=== PATIENT | female | born 1990 | race Caucasian/White ===

== ENCOUNTER 2019-02-03 17:38 | Emergency (ER) | payer OTHER ==
[~2019-02-03] VITALS: Ht 167.6 cm; Wt 90.7 kg
[2019-02-03 17:38] VITALS: BP 122/80
--- NOTE | 2019-02-03 17:38 | NUR ---
Patient BIBA BLS, transferred to bed 8. RN evaluating patient at bedside.
[2019-02-03] MEDS ORDERED: HALOPERIDOL IM 5 MG/ML VIAL IM ONE (17:50)
[2019-02-03] MEDS ORDERED: LORazepam 2 MG/ML VIAL IM ONE (17:50)
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
[2019-02-03] MEDS ORDERED: NACL 0.9% 1,000 ML IV ONE ×2 (18:40→19:40)
[2019-02-03 18:45] LABS: BASOPHILS # (AUTO) 0.1 K/uL (0.00-0.22); BASOPHILS % (AUTO) 0.5 % (0.0-2.0); EOSINOPHILS % (AUTO) 0.2 % (0.0-4.0); HEMATOCRIT 41.7 % (36-48); HEMOGLOBIN 13.9 g/dL (12.0-16.0); LYMPHOCYTES % (AUTO) 13.9 % (20.5-51.1); MEAN CORPUSCULAR HEMOGLOBIN 30 pg (27-31); MEAN CORPUSCULAR HGB CONC 33 g/dL (33-37); MEAN CORPUSCULAR VOLUME 90.3 fL (80-94); MONOCYTES # (AUTO) 1.5 K/uL (0.8-1.0); MONOCYTES % (AUTO) 10.4 % (1.7-9.3); NEUTROPHILS # (AUTO) 10.8 K/uL (1.8-7.7); PLATELET COUNT (AUTO) 381 K/uL (140-450); RED BLOOD CELL COUNT(AUTO) 4.62 MIL/uL (4.20-5.40); RED CELL DISTRIBUTION WIDTH 13.9 % (11.6-13.7); WHITE BLOOD COUNT (AUTO) 14.4 K/uL (4.8-10.8)
[2019-02-03 18:55] LABS: ANION GAP 14.3 (8-16); CARBON DIOXIDE 26.9 mmol/L (21-32); CHLORIDE 105 mmol/L (98-107); CREATININE 1.2 mg/dL (0.6-1.3); GFR ARICAN-AMERICAN 68 mL/min (>90); GLUCOSE 77 mg/dL (74-106); POTASSIUM 4.2 mmol/L (3.5-5.1); SODIUM SERUM 142 mmol/L (136-145); UREA NITROGEN, BLOOD 12 mg/dL (7-18)
[2019-02-03 19:09] LABS: ALBUMIN 4.3 g/dL (3.4-5.0); ASPARTATE AMINOTRANSFERASE 27 U/L (15-37); SALICYLATE < 2.8 mg/dL (2.8-20.0); TOTAL BILIRUBIN 0.9 mg/dL (0.0-1.0)
[2019-02-03 19:10] LABS: ACETAMINOPHEN < 0.5 ug/ml (10-30)
--- NOTE | 2019-02-03 19:15 | NUR ---
4-POINT RESTRAINTS MAINTAINED, ALL EXTREMITIES SKIN PINK WARM AND DRY, +2 PULSE, +CIRCULATION, FULL ROM, CAP REFILL<3S.
--- NOTE | 2019-02-03 19:15 | NUR ---
PT ROOM/ENVIRONMENT CHECKED FOR SAFETY, ALL PT BELONGINGS WERE SENT TO SECURITY.
--- NOTE | 2019-02-03 19:15 | NUR ---
RECEIVED REPORT FROM AM NURSE. PT LAYING IN BED SLEEPING, AROUSABLE TO TOUCH, PT REMAINS LETHARGIC AND MILDLY RESTLESS, ATTEMPTING TO REMOVE RESTRAINTS. PERRLA. YEBOAH. 1:1 SITTER AT BEDSIDE WITH CLOSE MONITORING, SAFETY MEASURES ENSURED. ALL NEEDS MET AT THIS TIME.
--- NOTE | 2019-02-03 20:15 | NUR ---
PT LAYING IN BED, REMAINS LETHARGIC BUT MILDLY RESTLESS, ATTEMPTING TO REMOVE RESTAINTS DESPITE EDUCATION. 4-POINT RESTRAINTS MAINTAINED, ALL EXTREMITIES SKIN PINK WARM AND DRY, +2 PULSE, +CIRCULATION, FULL ROM, CAP REFILL<3S.
[2019-02-03 20:16] LABS: APPEARANCE,URINE HAZY (CLEAR); BILIRUBIN,URINE 1+ (NEGATIVE); BLOOD, URINE TRACE-L (NEGATIVE); COLOR,URINE YELLOW (YELLOW); LEUKOCYTE ESTERASE ,URINE 3+ (NEGATIVE); NITRITE, URINE NEGATIVE (NEGATIVE); PH,URINE 7.5 (5.0-9.0); UGLUCOSE NEGATIVE (NEGATIVE)
[2019-02-03 20:17] LABS: BARBITURATE, URINE NEG. ng/ml (NEG <=200); BENZODIAZEPINE, URINE POS. ng/mL (NEG <=200); CANNABINOID, URINE NEG. ng/mL (NEG <=50); COCAINE, URINE NEG. ng/mL (NEG <=300); OPIATE, URINE NEG. ng/mL (NEG <=2000); PHENCYCLIDINE SCREEN,URINE NEG. ng/mL (NEG <=25)
[2019-02-03 20:21] LABS: WBC,URINE >25 (MANY) /HPF (0-5)
--- NOTE | 2019-02-03 21:22 | NUR ---
PT IS MILDLY LETHARGIC BUT MORE ALERT, ABLE AGREE AND VERBALIZE QUALIFICATIONS TO REMOVE RESTRAINTS. 4-POINT RESTRAINTS REMOVED AT THIS TIME. 1:1 SITTER AT BEDSIDE WITH CLOSE MONITORING, SAFETY MEASURES ENSURED.
--- NOTE | 2019-02-03 22:04 | NUR ---
TELEPSYCH INITIATED PER DR PEREZ
--- NOTE | 2019-02-03 23:39 | NUR ---
TELEPSYCH CALLED TO TEST VIDEO AND SOUND
--- NOTE | 2019-02-04 00:15 | NUR ---
DR. VANEGAS TELEPSYCH CALLED TO SPEAK WITH RAULITO DURHAM AT THIS TIME
--- NOTE | 2019-02-04 00:21 | NUR ---
RECEIVED CALL FROM DR. VANEGAS, GAVE REPORT. PT LAYING IN BED SLEEPING, AROUSABLE TO NAME, RR EVEN AND UNLABORED. VSS. 1:1 SITTER AT BEDSIDE WITH CLOSE MONITORING. SAFETY MEASURES ENSURED. ALL NEEDS MET.
--- NOTE | 2019-02-04 00:23 | NUR ---
DR VANEGAS SPEAKING WITH PT VIA TELEPSYCH
--- NOTE | 2019-02-04 00:40 | NUR ---
SPOKE WITH DR. VANEGAS WHO RECOMMENDED TO MAINTAIN 5150 HOLD OR REASSESS LATER DUE TO MD UNSURE IF PT IS TOO SEDATED OR TOO PSYCHOTIC. PT DOES NOT KNOW PT'S 'S NUMBER, NOT IN CHART
--- NOTE | 2019-02-04 00:42 | NUR ---
Sarah bone in [facility] - 02/04/19 at [address] GUILHERME VERA CALLED TO SPEAK WITH RAULITO DURHAM AT THIS TIME
--- NOTE | 2019-02-04 01:33 | NUR ---
PT LAYING IN BED, SLEEPING, VSS, RR EVEN AND UNLABORED. 1:1 SITTER AT BEDSIDE WITH CLOSE MONITORING, SAFETY MEASURES ENSURED. ALL NEEDS MET AT THIS TIME.
--- NOTE | 2019-02-04 03:02 | NUR ---
Spoke to Yina juan at [facility] , packet is being reviewed for possible placement , Sharon fried made aware.
--- NOTE | 2019-02-04 03:09 | NUR ---
PT LAYING IN BED, SLEEPING, VSS, RR EVEN AND UNLABORED. 1:1 SITTER AT BEDSIDE WITH CLOSE MONITORING, SAFETY MEASURES ENSURED. ALL NEEDS MET AT THIS TIME.
--- NOTE | 2019-02-04 05:20 | NUR ---
RECEIVED CALL FROM RAVIN FROM [facility], GAVE REPORTS. DR PEREZ TO CALL DR. VILLELA FOR MD-TO-MD MEDICAL CLEARANCE. AFTER MD-TO -MD CALL, PER DR PEREZ, PT TO RECEIVE ROCEPHIN IV AND PT WILL BE MEDICALLY CLEARED.
[2019-02-04] MEDS ORDERED: cefTRIAXone 1,000 MG VIAL ONE (05:36)
--- NOTE | 2019-02-04 06:08 | NUR ---
CALLED RAVIN [phone], PT IS MEDICALLY CLEARED, PT TO BE TRANSFERRED TO [facility], DELAYED LOCK UNIT, DR. HU, BED 912B.
--- NOTE | 2019-02-04 07:00 | NUR ---
pt ambulatory with steady gait to and from restroom. cooperative
--- NOTE | 2019-02-04 07:16 | NUR ---
PT LAYING IN BED, RR EVEN AND UNLABORED, VSS, AMBULATORY TO RESTROOM. PT DENIES ANY PAIN. REQUESTING MEDICATION FOR INSOMNIA. PT UPDATED ON PLAN OF CARE, PT TO BE TRANSFERRED TO [facility]. ALL NEEDS MET.
--- NOTE | 2019-02-04 07:19 | NUR ---
Pt report given to GINNY. Transfer of care at this time.
--- NOTE | 2019-02-04 08:00 | NUR ---
Patient ambulated to restroom with sitter
--- NOTE | 2019-02-04 08:32 | NUR ---
delayed lock unit [phone] bed [id number] will call us back to receive report.
[2019-02-04] MEDS ORDERED: LORazepam 1 MG TAB PO ONE (08:40)
--- NOTE | 2019-02-04 09:20 | NUR ---
chloe charge nurse is not ready to receive report from us----she did repeat our er number and will call us back no estimated time of call back provided
--- NOTE | 2019-02-04 09:30 | NUR ---
ruby morocho [facility] can not take our pt at this time. she has to take an internal transfer from their er. transport here for chicken picker---placed on will call Ruby CABEZAS estimated she will call 1hr
--- NOTE | 2019-02-04 10:29 | NUR ---
continues to wait for [facility] acceptance of report prior to calling transport again. pt remains in [place], admits feeling less anxious-=- sitter remains at bedside.
--- NOTE | 2019-02-04 11:21 | NUR ---
REPORT GIVEN TO [facility] RN OUR HEAD OF INSIGHT WITH CALL TRANSPORT
[2019-02-04 12:36] VITALS: BP 118/63
--- NOTE | 2019-02-04 12:55 | NUR ---
Patient to be transferred to [facility]. Is being transferred due to . Receiving facility has accepting physician and available space. ER physician has signed transfer form. Patient or responsible constitution party has agreed to transfer and signed form. Patient belongings inventoried and will be sent with patient. Copy of nursing notes, lab reports, EKG, Physicians Orders and X-rays to be sent with patient. Report called to at receiving facility. ambulance service has been called for transfer. ETA is [f now].
== END 2019-02-04 12:55 ==
LOC: MED 17:38
DX: R45.850 Homicidal ideations (principal)
CPT/HCPCS: 36415; 80053; 80305; 81001; 81025; 84443; 85025; 87086; 93005; 96365; 96372; 99285; G0480; G0482; J0696; J1630; J2060; J7030